=== PATIENT | female | born 1990 | race Caucasian/White ===

== ENCOUNTER 2023-05-18 19:18 | Emergency (ER) | payer BC ==
[~2023-05-18] VITALS: Ht 167.6 cm; Wt 108.9 kg
--- NOTE | 2023-05-18 20:34 | NUR ---
BIBS FOR R ELBOW PAIN X 2 WEEKS.
--- NOTE | 2023-05-18 21:31 | NUR ---
[employer] AT CHAIR SIDE.
--- NOTE | 2023-05-18 21:52 | NUR ---
IMMOBILIZER PLACED TO RIGHT ARM
[2023-05-18 21:53] VITALS: BP 129/81; TEMP 98.5; O2SAT 100
--- NOTE | 2023-05-18 21:54 | NUR ---
Patient discharged to home in stable condition. Written and verbal after care instructions given. Patient verbalizes understanding of instruction.
== END 2023-05-18 21:54 | disposition home or self-care (01) ==
LOC: ER 19:23
DX: M70.21 Olecranon bursitis, right elbow (principal); Y93.89 Activity, other specified
CPT/HCPCS: 73080-TC